=== PATIENT | male | born 1975 ===

== ENCOUNTER 2017-06-04 18:07 | Emergency (ER) | payer OTHER ==
[2017-06-04 18:17] VITALS: RESP 16; TEMP 98; O2SAT 98
[2017-06-04 19:24] LABS: BASO % 0.6 % (0.0-2.0); EOS # 0.1 K/uL (0.0-0.7); EOS % 1.2 % (0.0-4.0); HEMOGLOBIN 14.4 g/dL (12.0-18.0); LYMPH # 1.9 K/uL (1.0-4.3); LYMPH % 27.1 % (20.0-40.0); MEAN CELL VOLUME 90.9 fl (80.0-94.0); MEAN CORPUSCULAR HEMOGLOBIN 30.2 pg (27.0-31.0); MEAN CORPUSCULAR HGB CONC 33.3 g/dL (33.0-37.0); MEAN PLATELET VOLUME 7.7 fl (7.2-11.7); MONO # 0.4 K/uL (0.0-0.8); MONO % 5.2 % (0.0-10.0); NEUT # 4.7 K/uL (1.8-7.0); NEUT % 65.9 % (50.0-75.0); NRBC % 0.1 % (0.0-0.0); RBC 4.75 Mil/uL (4.40-5.90); RED CELL DISTRIBUTION WIDTH 14.3 % (11.5-14.5); WHITE BLOOD COUNT 7.1 K/uL (4.8-10.8)
--- NOTE | 2017-06-04 19:33 | ED PDOC ---
HPI: General Adult Time Seen by Provider: 06/04/17 18:25 Chief Complaint (Nursing): Weakness/Neurological Deficit Chief Complaint (Provider): Weakness/Neurological Deficit History Per: Patient History/Exam Limitations: no limitations Onset/Duration Of Symptoms: Days (x 2 weeks) Current Symptoms Are (Timing): Still Present Additional Complaint(s): 42 y/o male presents to the ED complaining of intermittent facial swelling and right hand numbness on 4th and 5th finger x 2 weeks. Pain notes that pain is worse at night. Patient was referred to the ER after being seen at the [facility] today. Patient also complaints of intermittent headache. Denies fever, chills, injuries to the neck or any further medical complaints. Past Medical History Reviewed: Historical Data, Nursing Documentation, Vital Signs Vital Signs: Last Vital Signs Temp 98.0 F 06/04/17 18:16 Pulse 76 06/04/17 21:48 Resp 16 06/04/17 21:48 BP 137/68 06/04/17 21:48 Pulse Ox 98 06/04/17 21:48 - Medical History PMH: No Chronic Diseases - Surgical History Surgical History: No Surg Hx - Family History Family History: States: Unknown Family Hx - Social History Current smoker - smoking cessation education provided: No (Never Smoked) Alcohol: None Drugs: Denies - Allergies Allergies/Adverse Reactions: Allergies Allergy/AdvReac Type Severity Reaction Status Date / Time No Known Allergies Allergy Verified 06/04/17 18:16 Review of Systems ROS Statement: Except As Marked, All Systems Reviewed And Found Negative (As per HPI, otherwise negative) Constitutional: Positive for: Other (Facial swelling). Negative for: Fever, Chills ENT: Negative for: Other (neck injuries) Neurological: Positive for: Numbness (in right hand on the 4th and 5th finger) Physical Exam - Reviewed Nursing Documentation Reviewed: Yes Vital Signs Reviewed: Yes - Physical Exam Appears: Positive for: Well, Non-toxic, No Acute Distress Head Exam: Positive for: ATRAUMATIC, NORMAL INSPECTION, NORMOCEPHALIC Skin: Positive for: Normal Color, Warm, Dry Eye Exam: Positive for: Normal appearance ENT: Positive for: Normal ENT Inspection Neck: Positive for: Normal, Painless ROM, Supple Cardiovascular/Chest: Positive for: Regular Rate, Rhythm. Negative for: Murmur Respiratory: Positive for: Normal Breath Sounds. Negative for: Accessory Muscle Use, Respiratory Distress Gastrointestinal/Abdominal: Positive for: Normal Exam, Bowel Sounds, Soft. Negative for: Tenderness Back: Positive for: Normal Inspection. Negative for: L CVA Tenderness, R CVA Tenderness Extremity: Positive for: Normal ROM. 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 Negative for : Motor/Sensory Deficits, Other (focal weakness) - Laboratory Results Result Diagrams: 06/04/17 19:19 06/04/17 19:19 - ECG ECG Rhythm: Positive for: Sinus Rhythm (Normal Sinus Rhythem - 60 with no acute changes) O2 Sat by Pulse Oximetry: 98 (RA) Pulse Ox Interpretation: Normal Medical Decision Making Medical Decision Making: Time: 18:59 Plan: EKG CMP Troponin I CBC w/ differential SED Rate C-spine c-ray Chest x-ray Bar Welder IV insertion Urinalysis Reevaluation Scribe Attestation: Documented by Stephanie Jang acting as a scribe for Macey Jamison MD. Scribe Attestation: All medical record entries made by the Scribe were at my direction and personally dictated by me. I have reviewed the chart and agree that the record accurately reflects my personal performance of the history, physical exam, medical decision making, and the department course for this patient. I have also personally directed, reviewed, and agree with the discharge instructions and disposition. 22.30 - patient is w/o symptoms. labs and x-rays are unrevealing. Will d/c Disposition - Clinical Impression Clinical Impression: Neuropathy - Patient ED Disposition Is Patient to be Admitted: No Doctor Will See Patient In The: Office Counseled Patient/Family Regarding: Diagnosis, Need For Followup - Disposition Disposition: Routine/Home Disposition Time: 22:32 Condition: STABLE Instructions: Peripheral Neuropathy (ED) Forms: [facility] (Cook Islander) Print Language: TOGOLESE - P[place]arkos Present On Arrival: None
[2017-06-04 19:38] LABS: ALB/GLOB RATIO 1.6 (1.0-2.1); ALBUMIN 4.8 g/dL (3.5-5.0); ALT/SGPT 57 U/L (21-72); AST/SGOT 34 U/L (17-59); BLOOD UREA NITROGEN 23 mg/dl (9-20); CALCIUM 9.4 mg/dL (8.4-10.2); GFR AFRICAN-AMERICAN > 60; GFR NON-AFRICAN AMERICAN > 60
[2017-06-04 20:22] LABS: URINE BILIRUBIN NEGATIVE (NEGATIVE); URINE BLOOD NEGATIVE (NEGATIVE); URINE CLARITY CLEAR (Clear); URINE COLOR STRAW (YELLOW); URINE GLUCOSE (UA) NEG (Normal); URINE LEUKOCYTE ESTERASE NEG Leu/uL (Negative); URINE NITRATE NEGATIVE (NEGATIVE); URINE PROTEIN NEGATIVE (NEGATIVE); URINE UROBILINOGEN 0.2-1.0 mg/dL (0.2-1.0)
[2017-06-04 21:49] VITALS: BP 137/68; PULSE 76
--- NOTE | 2017-06-05 09:07 | RAD ---
PROCEDURE: Cervical Spine Radiographs. HISTORY: Pain. COMPARISON: None. FINDINGS: BONES: Five views of the cervical spine were performed. There is normal alignment and lordotic curvature. No prevertebral soft tissue swelling is seen. No lytic process is seen. Posterior elements are intact. No jumped facets are identified. DISC SPACES: No significant disc space narrowing. SOFT TISSUES: Normal. No prevertebral soft tissue swelling. OTHER FINDINGS: There may be some mild bony neural foraminal narrowing at C4-5 on the left and C6-7 on the right. No cervical ribs are seen. Lung apices are unremarkable. Visualized mandible is intact. IMPRESSION: No evidence of fracture or malalignment. Possible mild bony neural foraminal narrowing. MRI may prove helpful for further evaluation if clinically indicated.
--- NOTE | 2017-06-05 09:09 | RAD ---
HISTORY: abnormal EKG COMPARISON: No prior. TECHNIQUE: Chest PA and lateral FINDINGS: LUNGS: No active pulmonary disease. Trachea is midline. PLEURA: No significant pleural effusion identified. No pneumothorax apparent. CARDIOVASCULAR: Minimal crowding is seen at the left lung base. Aorta is slightly uncoiled. No CHF is seen. OSSEOUS STRUCTURES: No significant abnormalities. VISUALIZED UPPER ABDOMEN: Normal. OTHER FINDINGS: None. IMPRESSION: No focal alveolar infiltrate. No CHF.
--- NOTE | 2017-06-05 12:15 | CARD ---
APPROVED REPORT EKG Measurement Heart [id number] <Conclusion> Normal sinus rhythm Nonspecific ST abnormality Abnormal ECG
== END 2017-06-04 22:50 | disposition home or self-care (01) ==
LOC: H.ER 18:07
DX: G62.9 Polyneuropathy, unspecified (principal)